=== PATIENT | female | born 2000 | race Caucasian/White ===

== ENCOUNTER 2021-06-28 01:36 | Emergency (ER) | payer SELFPAY ==
[2021-06-28] MEDS ORDERED: Ondansetron PF 4 MG/2 ML Vial ONE (02:08)
[2021-06-28 04:11] LABS: Bacteria/HPF None Seen HPF (None Seen); Bilirubin Negative (Negative); Blood, Urine Negative (Negative); Clarity Turbid (Clear); Glucose, Urine (Dipstick) Normal (Negative); Ketone, Urine 20 mg/dL (Negative); Leukocyte 25 Leu/uL (Negative); Nitrite Negative (Negative); Pregnancy Test - Urine (BHCG) Negative (Negative); Pregu Control Background? CLEAR/WHITE (CLR/WHITE); Pregu Control Bar Appear? YES (CONTROL BAR); Protein, Urine (Dipstick) 20 mg/dL (Neg-Trace); Specific Gravity 1.028 (1.002-1.036); Specific Gravity, Urine 1.028 (1.002-1.036); Urobilinogen Normal mg/dL (Less than 2); pH, Urine 5.5 (5.0-9.0)
== END 2021-06-28 04:04 | disposition home or self-care (01) ==
LOC: ERS 01:36
DX: R11.2 Nausea with vomiting, unspecified (principal)
CPT/HCPCS: 81003; 81015; 81025; 96374; J2405